=== PATIENT | male | born 1980 ===

== ENCOUNTER 2017-06-14 17:54 | Emergency (ER) | payer MEDICAID ==
[~2017-06-14] VITALS: Ht 182.9 cm; Wt 86.2 kg
--- NOTE | 2017-06-14 19:01 | NUR ---
PATIENT WAS SEEN BY MD FOR C/O LOWER BACK/FLANK PAIN. MEDS GIVEN ORDERED. URINE SENT TO LAB. AWAITING IMAGING STUDIES/RESULTS.
[2017-06-14 19:02] LABS: *BILIRUBIN,URIN NEGATIVE (NEGATIVE); *BLOOD, URINE NEGATIVE (NEGATIVE); *CLARITY,URINE CLEAR (CLEAR); *COLOR,URINE YELLOW (YELLOW); *KETONES,URINE NEGATIVE (NEGATIVE); *PROTEIN,URINE NEGATIVE (NEGATIVE); *UROBILINOGEN,URINE 0.2 E.U./dl (NORMAL); LEUKOCYTE ESTERASE ,URINE NEGATIVE (NEGATIVE); NITRITE, URINE NEGATIVE (NEGATIVE); UGLUCOSE NEGATIVE (NEGATIVE)
[2017-06-14 19:07] LABS: BACTERIA,URINE FEW /HPF (NONE SEEN); RBC,URINE 0-3 /HPF (0-3); SQUAMOUS EPITHELIAL CELL,UR FEW /HPF (NONE SEEN); WBC,URINE 0-3 /HPF (0-3)
--- NOTE | 2017-06-14 19:29 | NUR ---
Pt is received alert, responsive as report is received from the off going nurse that pt came in c/o lower back/Flank pain . His care as await U/S to be done as ordered with urine and Lab work done and awaits results while monitor and treat for pain.
--- NOTE | 2017-06-14 19:55 | NUR ---
Pt remain alert responsive as u/s is been done as ordered and pain management noted effective.
[2017-06-14 20:09] VITALS: BP 117/68
--- NOTE | 2017-06-14 20:17 | NUR ---
Pt is been discharge to home with prescrbed medications off [id number] PO Q6HRS PRN for pain, Flexeril 10mg po three times a day for Muscular Tension or SPasm.
--- NOTE | 2017-06-14 20:23 | NUR ---
Pt remain stable with all discharge instructions given and no s/s off discomfort or pain.
== END 2017-06-14 20:25 | disposition home or self-care (01) ==
LOC: ER 17:54
DX: M54.5 Low back pain (principal)
CPT/HCPCS: 72100; 76770; 81001; 99285; A4663; Q0162